=== PATIENT | male | born 1980 | race Caucasian/White ===

== ENCOUNTER 2021-10-06 20:17 | Emergency (ER) | payer OTHER ==
[2021-10-06 20:38] VITALS: BP 129/77; PULSE 69
== END 2021-10-06 22:00 | disposition home or self-care (01) ==
LOC: JD.ED 20:17
DX: S60.222A Contusion of left hand, initial encounter (principal); W22.09XA Striking against other stationary object, initial encounter
CPT/HCPCS: 73130-26-LT; 73130-LT; 99283

== ENCOUNTER 2022-05-26 22:03 | Inpatient (IN) | payer OTHER ==
[2022-05-26] MEDS ORDERED: Sodium Chloride 0.9% 10 ML Syringe FLUSH PRN (22:34)
[2022-05-26] MEDS ORDERED: Ondansetron 4 MG/2 ML SDV IVPUSH ONE (22:34)
[2022-05-26] MEDS ORDERED: Sodium Chloride 0.9% 1,000 ML IV SCH (22:45)
[2022-05-26 23:15] LABS: ESTIMATED GFR 111 mL/min (>60)
[2022-05-26] MEDS ORDERED: HYDROmorphone 1 MG/ML Syringe IVPUSH ONE (23:25)
[2022-05-26] MEDS ORDERED: Magnesium Sulfate/Water 2 GM in Premix Bag 1 BAG IV ONE (23:27)
[2022-05-26] MEDS ORDERED: Iopamidol 612 MG/ML 100 ML Bottle IVPUSH ONE (23:43)
[2022-05-27] MEDS ORDERED: Ondansetron 4 MG/2 ML SDV IVPUSH PRN (03:06)
[2022-05-27] MEDS: Sodium Chloride 0.9% 1,000 ML IV SCH ×2 (03:20→13:10)
[2022-05-27] MEDS: HYDROmorphone 1 MG/ML Syringe IVPUSH PRN ×3 (03:33→20:08)
[2022-05-27 15:57] VITALS: BP 118/64; PULSE 86
== END 2022-05-27 22:00 | disposition home or self-care (01) | DRG 419 ==
LOC: JD.ED 22:03 → JD.MS 05-27 02:13
PROVIDERS: ADMIT Surgery; ATTEND Surgery
PROC: 0FT44ZZ Resection of Gallbladder, Percutaneous Endoscopic Approach (ICD-10-PCS; principal; 2022-05-27)
DX: K81.0 Acute cholecystitis (principal); F41.9 Anxiety disorder, unspecified; Z87.891 Personal history of nicotine dependence; F90.9 Attention-deficit hyperactivity disorder, unspecified type; E83.42 Hypomagnesemia
CPT/HCPCS: 36415; 74177-26; 76705; 76705-26; 80053; 81001; 83690; 83735; 85025; 86140; 96365; 96366; 96375; 99285-25; J1170; J2405; J3475; J3490; J7030; Q9967

== ENCOUNTER 2022-10-16 14:48 | Emergency (ER) | payer OTHER ==
[2022-10-16] MEDS ORDERED: Aspirin 81 MG Tab.Chew PO ONE (17:13)
[2022-10-16] MEDS ORDERED: Sodium Chloride 0.9% 10 ML Syringe FLUSH PRN (17:13)
[2022-10-16] MEDS ORDERED: Nitroglycerin 0.4 MG Tab.SL SL PRN (18:40)
[2022-10-16 21:53] VITALS: BP 132/88; PULSE 55
== END 2022-10-16 19:58 | disposition home or self-care (01) ==
LOC: JD.ED 14:48
DX: R07.9 Chest pain, unspecified (principal); F41.9 Anxiety disorder, unspecified; E66.9 Obesity, unspecified; Z68.36 Body mass index [BMI] 36.0-36.9, adult
CPT/HCPCS: 36415; 71045; 80053; 83735; 84484; 85025; 85379; 85610; 85730; 93005; 99285; A9270; 93010; 99283